=== PATIENT | female | born 1940 | race Caucasian/White ===

== ENCOUNTER → 2024-08-03 07:11 | Outpatient (REF) | payer OTHER, SELFPAY | LOC: RAD 07:11 | PROVIDERS: ATTENDING PHYSICIAN Internal Medicine Hematology & Oncology; FAMILY PHYSICIAN Family Medicine | DX: E83.52 Hypercalcemia (principal); M54.31 Sciatica, right side; C91.10 Chronic lymphocytic leukemia of B-cell type not having achieved remission | CPT/HCPCS: 76705 ==